=== PATIENT | female | born 1970 | race Caucasian/White ===

== ENCOUNTER 2020-09-24 11:52 | Emergency (ER) | payer MEDICAID ==
--- NOTE | 2020-09-24 12:57 | EDM.PDOC ---
ED HPI GENERAL MEDICAL PROBLEM - General Chief Complaint: Respiratory Problem Stated Complaint: COVID Time Seen by Provider: 09/24/20 11:55 Source of Information: Reports: Patient History Limitations: Reports: No Limitations - History of Present Illness INITIAL COMMENTS - FREE TEXT/NARRATIVE: c/o COVID pt works 15-20 hrs/wk at [employer] in [employer], several clients with COVID has COVID and had O2 in 80s, has d/x COPD, hospitalized in [place] pt with loss of taste and smell, dx with COVID 6d ago, has had inc'd cough x 2d, had slight green tinge to sputum today no fever, no n/v h/o RA, is on Arava and 2 other RA meds, mother helper stopped them 4d ago PCP Dr Thibodeaux, pt not able to get ahold of him says she dx with COPD on CxR, had been sob earlier this yr and Dr Thibodeaux had obtained several CxR has neb at home used x 2d, 3-4x/d, does not seem to help PO 92% during night at home slight bifrontal TRUONG - Related Data Allergies Allergy/AdvReac Type Severity Reaction Status Date / Time adalimumab [From Humira] Allergy Rash Verified 09/10/18 07:53 codeine Allergy Nausea and Verified 09/10/18 07:53 Vomiting Home Meds: Home Meds Albuterol [Proventil HFA] 1 - 2 puff INH Q4H PRN 09/09/18 [History] Calcium Carbonate/Vitamin D3 [Calcium 600 + Vit D 200] 1 each PO BID 09/09/18 [ History] Clobetasol Propionate [Temovate Cream] 1 applic TOP BID 09/09/18 [History] Diclofenac Sodium [Voltaren] 10 gm TOP QID 09/09/18 [History] Dicyclomine [Bentyl] 10 mg PO TID PRN 09/09/18 [History] Fexofenadine [Amy] 180 mg PO DAILY 09/09/18 [History] Lysine 500 mg PO DAILY 09/09/18 [History] Magnesium Amino Acid Chelate [Magnesium] 100 mg PO DAILY 09/09/18 [History] Montelukast [Singulair] 10 mg PO BEDTIME 09/09/18 [History] Omeprazole Magnesium [Prilosec Otc] 20 mg PO DAILY 09/09/18 [History] Quinapril/Hydrochlorothiazide [Quinapril-HCTZ 20-12.5 MG] 1 tab PO DAILY 09/09/18 [History] Sertraline [Zoloft] 150 mg PO DAILY 09/09/18 [History] Tamoxifen [Nolvadex] 20 mg PO DAILY 09/09/18 [History] buPROPion [Wellbutrin] 75 - 150 mg PO BEDTIME 09/09/18 [History] traZODone 100 mg PO BEDTIME 09/09/18 [History] Amoxicillin/Potassium Clav [Augmentin 875-125 Tablet] 1 each PO BID #14 tablet 09/24/20 [Rx] Benzonatate 200 mg PO TID PRN #30 capsule 09/24/20 [Rx] LORazepam [Lorazepam] 0.5 mg PO TID PRN #21 tablet 09/24/20 [Rx] Past Medical History HEENT History: Reports: Allergic Rhinitis, Impaired Vision Cardiovascular History: Reports: Hypertension Respiratory History: Reports: Asthma Gastrointestinal History: Reports: Irritable Bowel Syndrome, Other (See Below) Other Gastrointestinal History: OBESITY Genitourinary History: Reports: None 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: Musculoskeletal History: Reports: RA Neurological History: Reports: None Psychiatric History: Reports: Anxiety, Bipolar, Depression Endocrine/Metabolic History: Reports: Obesity/BMI 30+ Hematologic History: Reports: Other (See Below) Other Hematologic History: DIURETIC INDUCED HYPOKALEMIA Immunologic History: Reports: None Oncologic (Cancer) History: Reports: Breast Dermatologic History: Reports: None - Past Surgical History Head Surgeries/Procedures: Reports: None HEENT Surgical History: Reports: Naso-Sinus Surgery, Tonsillectomy Cardiovascular Surgical History: Reports: None Respiratory Surgical History: Reports: None GI Surgical History: Reports: None Female Surgical History: Reports: Section, Tubal Ligation Endocrine Surgical History: Reports: None Neurological Surgical History: Reports: None Musculoskeletal Surgical History: Reports: Arthroscopic Knee Oncologic Surgical History: Reports: Biopsy of Breast Social & Family History - Caffeine Use Caffeine Use: Reports: Coffee ED ROS GENERAL - Review of Systems Review Of Systems: See Below Constitutional: Reports: Fatigue. Denies: Fever, Diaphoresis HEENT: Reports: No Symptoms Respiratory: Reports: Shortness of Breath, Wheezing, Cough, Sputum. Denies: Pleuritic Chest Pain Cardiovascular: Reports: No Symptoms Endocrine: Reports: No Symptoms GI/Abdominal: Reports: No Symptoms : Reports: No Symptoms Musculoskeletal: Reports: No Symptoms Skin: Reports: No Symptoms Neurological: Reports: No Symptoms Psychiatric: Reports: No Symptoms Hematologic/Lymphatic: Reports: No Symptoms Immunologic: Reports: No Symptoms ED EXAM, GENERAL - Physical Exam Exam: See Below Exam Limited By: No Limitations General Appearance: Alert, WD/WN, No Apparent Distress, Other (alert, nonill, wearing mask, sitting in chair, talks 10-word sentences, no dyspnea, no cough observed, does not appear fatigued) Eye Exam: Bilateral Eye: EOMI Nose: Normal Inspection Throat/Mouth: Normal Voice, No Airway Compromise Head: Atraumatic, Normocephalic Neck: Normal Inspection, Supple, Non-Tender, Full Range of Motion. No: Lymphadenopathy (R), Lymphadenopathy (L) Respiratory/Chest: No Respiratory Distress, Chest Non-Tender, Other (air AE, no rales/wheezes, no inc'd exp phase, symmetric, no accessory muscles). No: Respiratory Distress, Crackles, Rales, Rhonchi, Wheezing, Stridor, Pleural Rub, Accessory Muscle Use, Retractions, Splinting, Prolonged Expiration Cardiovascular: Regular Rate, Rhythm, No Edema, No Gallop, No Murmur GI/Abdominal: Soft, Non-Tender, No Distention Back Exam: Normal Inspection, Full Range of Motion. No: CVA Tenderness (R), CVA Tenderness (L) Extremities: Normal Inspection, Normal Range of Motion, Non-Tender, No Pedal Edema Neurological: Alert, Oriented, CN II-XII Intact, Normal Cognition, Normal Gait, No Motor/Sensory Deficits Psychiatric: Normal Affect Skin Exam: Warm, Dry, Intact, Normal Color, No Rash Lymphatic: No Adenopathy Course - Vital Signs Last Recorded V/S: Last Vital Signs Temp 36.1 C 09/24/20 11:52 Pulse 93 09/24/20 11:52 Resp 20 09/24/20 11:52 BP 111/78 09/24/20 11:52 Pulse Ox 98 09/24/20 11:52 - Orders/Labs/Meds Orders: Active Orders 24 hr Category Date Time Status Chest 1V Frontal [CR] Stat Exams 09/24/20 12:32 Taken Labs: Laboratory Tests 09/24/20 09/24/20 09/24/20 Range/Units 12:40 12:40 12:40 WBC 7.3 (3.0-10.3) x10-3/uL RBC 4.13 (3.60-5.20) x10(6)uL Hgb 12.6 (11.4-15.5) g/dL Hct 39.6 (34.2-48.2) % MCV 95.9 (76.7-100.5) fL MCH 30.6 (23.9-33.9) pg MCHC 31.9 (31.9-34.8) g/dL RDW 14.9 (12.3-16.5) % Plt Count 312 (151-488) x10(3)uL MPV 7.3 (7.1-12.4) fL Neut % (Auto) 60.9 (30.8-76.2) % Lymph % (Auto) 26.6 (18.4-52.1) % Galax % (Auto) 10.0 (4.4-15.7) % Eos % (Auto) 1.6 (0.6-8.1) % Baso % (Auto) 0.9 (0.2-1.5) % Neut # (Auto) 4.5 (1.5-6.3) x10-3/uL Lymph # (Auto) 1.9 (1.0-4.4) x10-3/uL Galax # (Auto) 0.7 (0.3-1.0) x10-3/uL Eos # (Auto) 0.1 (0.0-0.8) x10-3/uL Baso # (Auto) 0.1 (0.0-0.1) x10-3/uL PT (9.0-11.1) sec INR (1.00-1.24) D-Dimer, Quantitative 0.40 (0.0-0.59) mg/LFEU Sodium 142 (135-145) mmol/L Potassium 4.0 (3.5-5.3) mmol/L Chloride 102 (100-110) mmol/L Carbon Dioxide 28 (21-32) mmol/L BUN 8 (7-18) mg/dL Creatinine 0.9 (0.55-1.02) mg/dL Est Cr Clr Drug Dosing 66.00 mL/min Estimated GFR (MDRD) > 60 (>60) BUN/Creatinine Ratio 8.9 L (9-20) Glucose 97 (80-116) mg/dL Calcium 9.6 (8.6-10.2) mg/dL Total Bilirubin 0.3 (0.1-1.3) mg/dL AST 22 D (5-25) IU/L ALT 34 D (12-36) U/L Alkaline Phosphatase 113 H (56-112) IU/L Troponin I (4.0-60.3) pg/mL C-Reactive Protein (0.5-0.9) mg/dL Total Protein 7.8 (6.0-8.0) g/dL Albumin 3.9 (3.5-5.2) g/dL Globulin 3.9 g/dL Albumin/Globulin Ratio 1.0 09/24/20 09/24/20 Range/Units 12:40 12:40 WBC (3.0-10.3) x10-3/uL RBC (3.60-5.20) x10(6)uL Hgb (11.4-15.5) g/dL Hct (34.2-48.2) % MCV (76.7-100.5) fL MCH (23.9-33.9) pg MCHC (31.9-34.8) g/dL RDW (12.3-16.5) % Plt Count (151-488) x10(3)uL MPV (7.1-12.4) fL Neut % (Auto) (30.8-76.2) % Lymph % (Auto) (18.4-52.1) % Galax % (Auto) (4.4-15.7) % Eos % (Auto) (0.6-8.1) % Baso % (Auto) (0.2-1.5) % Neut # (Auto) (1.5-6.3) x10-3/uL Lymph # (Auto) (1.0-4.4) x10-3/uL Galax # (Auto) (0.3-1.0) x10-3/uL Eos # (Auto) (0.0-0.8) x10-3/uL Baso # (Auto) (0.0-0.1) x10-3/uL PT 10.4 (9.0-11.1) sec INR 0.96 L (1.00-1.24) D-Dimer, Quantitative (0.0-0.59) mg/LFEU Sodium (135-145) mmol/L Potassium (3.5-5.3) mmol/L Chloride (100-110) mmol/L Carbon Dioxide (21-32) mmol/L BUN (7-18) mg/dL Creatinine (0.55-1.02) mg/dL Est Cr Clr Drug Dosing mL/min Estimated GFR (MDRD) (>60) BUN/Creatinine Ratio (9-20) Glucose (80-116) mg/dL Calcium (8.6-10.2) mg/dL Total Bilirubin (0.1-1.3) mg/dL AST (5-25) IU/L ALT (12-36) U/L Alkaline Phosphatase (56-112) IU/L Troponin I 4.8 (4.0-60.3) pg/mL C-Reactive Protein 3.2 H* (0.5-0.9) mg/dL Total Protein (6.0-8.0) g/dL Albumin (3.5-5.2) g/dL Globulin g/dL Albumin/Globulin Ratio - Re-Assessments/Exams Free Text/Narrative Re-Assessment/Exam: 09/24/20 14:51 labs reviewed at length with pt, likely early markings in LLL altho radiology reading not yet back pt impatient and angry, walked out 30 min ago altho I asked her stay to talk with me with she did pt angry at her PCP who she said did not return her phone calls (and spoke quite disrespectfully), pt angry at nursing here, was unpleasant with me I explained that her illness is serious, does require close monitoring, that she did the right thing coming to the ED today I did ask her to speak respectfully re the physicians and nurses I encouraged her to take lorazepam 0.5 mg tid as pt is distressed by the work of breathing, and she seemed agreeable to doing so I explained that she may continue to use her nebs at home altho it is not uncommon for there to be minimum benefit there is no radiologic evidence of COPD on her CxR today, none smoker, says [place] and thinks that this affected her breathing she is worried re her who is in [facility] x last 3d, on the floor, says he has had "trouble breathing" I called [facility] and asked the public welfare worker whether there was an outpt management team for COVID (which I know exists in [facility] where they have 125 pts enrolled as of a few days ago), public welfare worker called the COVID unit and spoke with the charge nurse who provided the phone number to the [facility] and said that pt would need to call tomorrow morning this was explained to pt, I told her that it would be important that she spoke to either an RN or MD/DO qod to monitor her progress and to return to the ED at any time if she was getting worse, had new sxs or had low PO in the 80s PO is 97% on RA here, did have a harsh cough at times with inc'd exp phase and wheeze with cough, but did not have wheeze or inc'd exp phase at rest steroids deferred at present as pt does not meet criteria altho could be an option in future, does not appear to have bronchospasm or asthma (pt states she "gets bronchitis a lot") pt given an Rx for Augmentin as she wants to be on an antbx altho I explained that she did not meet strict criteria based on her test results today the risks and benefits of benzonatate were discussed, because her cough has been troublesome (nonproductive) at times, she was provided an Rx for benzonatate, states she cannot take codeine GRAEME Claire provided instructions and Rx after I discussed them at length with her as well, pt reported to Alethea that she has 10 and 16 yo children at home who have autism, have not been ill, has been a source of worry pt told Alethea that her is on 8 liters/min of oxygen, pt was pleasant with Alethea and listed to the instructions that were provided Departure - Departure Time of Disposition: 14:35 Disposition: Home, Self-Care 01 Condition: Fair Clinical Impression: COVID-19 virus infection, Elevated C-reactive protein (CRP) - Discharge Information *PRESCRIPTION DRUG MONITORING PROGRAM REVIEWED*: Yes *COPY OF PRESCRIPTION DRUG MONITORING REPORT IN PATIENT REYNA: No Prescriptions: Amoxicillin/Potassium Clav [Augmentin 176-370 Tablet] 1 each PO BID #14 tablet Benzonatate 200 mg PO TID PRN #30 capsule PRN Reason: Cough LORazepam [Lorazepam] 0.5 mg PO TID PRN #21 tablet PRN Reason: Shortness Of Breath Instructions: COVID-19, Prevent the Spread of COVID-19 if You Are Sick - [facility] Forms: ED Department Discharge Additional Instructions: Your labs tests look quite good at the moment. You do have an increase in your c-reactive protein which is a marker for inflammation, which may be due to the COVID infection although it could be due to your rheumatoid arthritis. You appear to have some early markings on your chest x-ray at the left lower lung, which may or may not get worse. For possible secondary infection, take Augmentin 875/125 mg 1 tab 2 times a day for 7 days. For cough, take benzonatate 200 mg 1 capsule 3 times a day as needed for 7 days. For work of breathing, take lorazepam 0.5 mg 1 tab 3 times a day as needed. You should come to the Emergency Room at any time, as you have done today, if you are feeling worse or your oxygen stays in the 80s. While you do not meet criteria to be hospitalized, you may need to be hospitalized at some juncture. You should also talk with an outpatient nurse or physician at least every other day to monitor your progress. [facility] does have an outpatient COVID team through the [facility]. Call them at [phone] tomorrow morning to enroll. They do require a physician referral, which your mother helper can do electronically. We have provided a paper copy of an order today as well, if they should need it. Sepsis Event Note (ED) - Evaluation Sepsis Screening Result: No Definite Risk - Focused Exam Vital Signs: Vital Signs Temp Pulse Resp BP Pulse Ox 09/24/20 11:52 36.1 C 93 20 111/78 98 - My Orders Last 24 Hours: My Active Orders 09/24/20 12:32 Chest 1V Frontal [CR] Stat - Assessment/Plan Last 24 Hours: My Active Orders 09/24/20 12:32 Chest 1V Frontal [CR] Stat
--- NOTE | 2020-09-25 10:04 | CR ---
INDICATION: COVID positive. Shortness of breath. Diagnosed with COVID 09/21/20. Symptoms from 09/18/20. CHEST, ONE VIEW: An AP portable upright view of the chest was obtained 09/24/20 - no comparisons. The heart, mediastinum, and bony thorax were unremarkable. Evidence of exogenous obesity is noted. A definite active infiltrate or effusion was not identified. IMPRESSION: No acute process. MTDD
== END 2020-09-24 15:05 | disposition home or self-care (01) ==
LOC: FB.ED 11:52
DX: U07.1 COVID-19 (principal); R79.82 Elevated C-reactive protein (CRP); I10 Essential (primary) hypertension; J45.909 Unspecified asthma, uncomplicated; F41.9 Anxiety disorder, unspecified; F31.9 Bipolar disorder, unspecified; E66.9 Obesity, unspecified; Z68.33 Body mass index [BMI] 33.0-33.9, adult; Z88.5 Allergy status to narcotic agent; Z88.8 Allergy status to other drugs, medicaments and biological substances; Z79.899 Other long term (current) drug therapy
CPT/HCPCS: 36415; 71045; 80053; 84484; 85025; 85379; 85610; 86140; 99283; 99285-25

== ENCOUNTER 2020-09-30 18:10 | Emergency (ER) | payer MEDICAID ==
[2020-09-30] MEDS ORDERED: Acetaminophen/HYDROcodone 325-5 MG Tab PO ONE (18:11)
[2020-09-30] MEDS ORDERED: Ketorolac 60 MG/2 ML SDV IM ONE (18:18)
--- NOTE | 2020-09-30 19:41 | EDM.PDOC ---
ED HPI GENERAL MEDICAL PROBLEM - General Chief Complaint: Respiratory Problem Stated Complaint: COVID Time Seen by Provider: 09/30/20 19:45 Source of Information: Reports: Patient History Limitations: Reports: No Limitations - History of Present Illness INITIAL COMMENTS - FREE TEXT/NARRATIVE: Patient presented to the ED because of dyspnea although her oxygen saturation was 97% on RA. She was diagnosed with Covid 10 days ago and is taking prednisone,tessalon perles, and she was just done taking Augmentin. There is no associated fever but she still have dry cough and pleuritic chest pain. chest wall Pain Score (Numeric/FACES): 5 - Related Data Allergies Allergy/AdvReac Type Severity Reaction Status Date / Time adalimumab [From Humira] Allergy Rash Verified 09/10/18 07:53 codeine Allergy Nausea and Verified 09/10/18 07:53 Vomiting Home Meds: Home Meds Albuterol [Proventil HFA] 1 - 2 puff INH Q4H PRN 09/09/18 [History] Calcium Carbonate/Vitamin D3 [Calcium 600 + Vit D 200] 1 each PO BID 09/09/18 [History] Clobetasol Propionate [Temovate Cream] 1 applic TOP BID 09/09/18 [History] Diclofenac Sodium [Voltaren] 10 gm TOP QID 09/09/18 [History] Dicyclomine [Bentyl] 10 mg PO TID PRN 09/09/18 [History] Fexofenadine [Amy] 180 mg PO DAILY 09/09/18 [History] Lysine 500 mg PO DAILY 09/09/18 [History] Magnesium Amino Acid Chelate [Magnesium] 100 mg PO DAILY 09/09/18 [History] Montelukast [Singulair] 10 mg PO BEDTIME 09/09/18 [History] Omeprazole Magnesium [Prilosec Otc] 20 mg PO DAILY 09/09/18 [History] Quinapril/Hydrochlorothiazide [Quinapril-HCTZ 20-12.5 MG] 1 tab PO DAILY 09/09/18 [History] Sertraline [Zoloft] 150 mg PO DAILY 09/09/18 [History] Tamoxifen [Nolvadex] 20 mg PO DAILY 09/09/18 [History] buPROPion [Wellbutrin] 75 - 150 mg PO BEDTIME 09/09/18 [History] traZODone 100 mg PO BEDTIME 09/09/18 [History] Amoxicillin/Potassium Clav [Augmentin 875-125 Tablet] 1 each PO BID #14 tablet 09/24/20 [Rx] Benzonatate 200 mg PO TID PRN #30 capsule 09/24/20 [Rx] LORazepam [Lorazepam] 0.5 mg PO TID PRN #21 tablet 09/24/20 [Rx] Past Medical History HEENT History: Reports: Allergic Rhinitis, Impaired Vision Cardiovascular History: Reports: Hypertension Respiratory History: Reports: Asthma Gastrointestinal History: Reports: Irritable Bowel Syndrome, Other (See Below) Other Gastrointestinal History: OBESITY Genitourinary History: Reports: 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: Musculoskeletal History: Reports: RA Neurological History: Reports: None Psychiatric History: Reports: Anxiety, Bipolar, Depression Endocrine/Metabolic History: Reports: Obesity/BMI 30+ Hematologic History: Reports: Other (See Below) Other Hematologic History: DIURETIC INDUCED HYPOKALEMIA Immunologic History: Reports: None Oncologic (Cancer) History: Reports: Breast Dermatologic History: Reports: None - Past Surgical History Head Surgeries/Procedures: Reports: None HEENT Surgical History: Reports: Naso-Sinus Surgery, Tonsillectomy Cardiovascular Surgical History: Reports: None Respiratory Surgical History: Reports: None GI Surgical History: Reports: None Female Surgical History: Reports: Section, Tubal Ligation Endocrine Surgical History: Reports: None Neurological Surgical History: Reports: None Musculoskeletal Surgical History: Reports: Arthroscopic Knee Oncologic Surgical History: Reports: Biopsy of Breast Social & Family History - Family History Family Medical History: No Pertinent Family History - Tobacco Use Tobacco Use Status *Q: Never Tobacco User Second Hand Smoke Exposure: No - Caffeine Use Caffeine Use: Reports: None - Recreational Drug Use Recreational Drug Use: No ED ROS GENERAL - Review of Systems Review Of Systems: See Below Constitutional: Reports: No Symptoms HEENT: Reports: Eye Discharge Respiratory: Reports: Shortness of Breath, Cough Cardiovascular: Reports: No Symptoms Endocrine: Reports: No Symptoms GI/Abdominal: Reports: No Symptoms : Reports: No Symptoms Musculoskeletal: Reports: No Symptoms Skin: Reports: No Symptoms Neurological: Reports: No Symptoms Psychiatric: Reports: No Symptoms ED EXAM, GENERAL - Physical Exam Exam: See Below Exam Limited By: No Limitations General Appearance: Alert, No Apparent Distress Ears: Normal External Exam, Normal Canal Nose: Normal Inspection, Normal Mucosa, No Blood Throat/Mouth: Normal Inspection, Normal Lips, Normal Teeth, Normal Gums Head: Atraumatic, Normocephalic Neck: Normal Inspection, Supple, Non-Tender, Full Range of Motion Respiratory/Chest: No Respiratory Distress, Lungs Clear, Normal Breath Sounds, No Accessory Muscle Use, Chest Non-Tender GI/Abdominal: Normal Bowel Sounds, Soft, Non-Tender, No Organomegaly Back Exam: Normal Inspection, Full Range of Motion Extremities: Normal Inspection, Normal Range of Motion, Non-Tender Course - Vital Signs Text/Narrative:: [id number] esult Oxygen VNC Toradol 60 mg IM Last Recorded V/S: Last Vital Signs Temp 36.1 C 09/30/20 18:10 Pulse 85 09/30/20 18:10 Resp 19 09/30/20 18:10 BP 145/83 H 09/30/20 18:10 Pulse Ox 97 09/30/20 18:10 - Orders/Labs/Meds Orders: Active Orders 24 hr Category Date Time Status Chest 1V Frontal [CR] Stat Exams 09/30/20 18:39 Taken Meds: Medications Discontinued Medications Generic Name Dose Route Start Last Admin Trade Name Freq PRN Reason Stop Dose Admin Ketorolac Tromethamine 60 mg 09/30/20 18:18 09/30/20 18:27 Toradol IM 09/30/20 18:19 60 mg ONETIME ONE Administration Departure - Departure Time of Disposition: 19:40 Disposition: Home, Self-Care 01 Condition: Good Clinical Impression: COVID-19 - Discharge Information Instructions: COVID-19 Frequently Asked Questions Referrals: Don Thibodeaux MD [Primary Care Provider] - Forms: ED Department Discharge Additional Instructions: Please read discharge instructions on COVID Your CXR is better than when you first came here Yo don't need anymore antibiotic because there is no pneumonia on your chest xray Continue your medications Ramsay 5/325 mg, 1-2 every 4-6 hours as needed for your chest wall pain Follow up as needed Sepsis Event Note (ED) - Focused Exam Vital Signs: Vital Signs Temp Pulse Resp BP Pulse Ox 09/30/20 18:10 36.1 C 85 19 145/83 H 97 - My Orders Last 24 Hours: My Active Orders 09/30/20 18:39 Chest 1V Frontal [CR] Stat - Assessment/Plan Last 24 Hours: My Active Orders 09/30/20 18:39 Chest 1V Frontal [CR] Stat
--- NOTE | 2020-10-02 13:09 | CR ---
INDICATION: COVID-19 patient. CHEST ONE VIEW: An AP upright portable view of the chest 09/30/20 was compared with 09/24/20 and revealed no significant interval change - no definite acute process with minimal dextroconvex scoliosis again noted. The heart appeared normal in size and shape, mediastinum was unremarkable. An active infiltrate or effusion was not demonstrated. IMPRESSION: No acute process - stable chest. MTDD
== END 2020-09-30 20:00 | disposition home or self-care (01) ==
LOC: FB.ED 18:10
DX: U07.1 COVID-19 (principal); I10 Essential (primary) hypertension; J45.909 Unspecified asthma, uncomplicated; E66.9 Obesity, unspecified; F41.9 Anxiety disorder, unspecified; F31.9 Bipolar disorder, unspecified; Z88.5 Allergy status to narcotic agent; Z88.8 Allergy status to other drugs, medicaments and biological substances; Z79.899 Other long term (current) drug therapy; Z90.49 Acquired absence of other specified parts of digestive tract; Z98.51 Tubal ligation status; Z68.34 Body mass index [BMI] 34.0-34.9, adult
CPT/HCPCS: 71045; 96372; 99284; A9270; J1885